=== PATIENT | female | born 1960 | race Caucasian/White ===

== ENCOUNTER 2024-01-25 06:24 | Emergency (ER) | payer OTHER, SELFPAY ==
[2024-01-25] VITALS (9 sets, daily range): BP systolic 74–99; BP diastolic 43–65; BMI 32.9
--- NOTE | 2024-01-25 07:20 | ED.GENMED ---
History of Present Illness
General
Chief Complaint: Abdominal Symptoms
Source: patient, records and family
Exam Limitations: none
Time Seen by Provider: 01/25/24 06:46
Nursing documentation reviewed up to this point in time: agreed with
Travel History
Have you had any contact with someone who has COVID-19?: No
Do you have any symptoms of coronavirus? Fever > 100 degrees, chills, cough, shortness of breath, sore throat, loss of taste or smell, muscle aches, or headache?: No
History of Present Illness
History of Present Illness:
Patient is a 63-year-old female who presents to the emergency department with diarrhea every time she eats which is liquidy but no blood or mucus for the past 5 days. Patient recently had her Mounjaro increased and shortly after that she began to
have the diarrhea. Patient denies any recent antibiotics, raw seafood or travel history. Patient starting to belch and feel nauseous but no vomiting. Patient has a generalized discomfort of her abdomen. Patient denies fever or chills. Patient
does feel dry. Patient denies any nasal congestion, sore throat or cough. Patient denies chest pain or shortness of breath. Patient denies any previous history of similar episodes. Patient was taking Imodium on the recommendation of the urgent
care which seem to help and then yesterday she began to feel worse
Past History
Past History
ED Past Medical History: Asthma, CAD, HTN and NIDDM
ED Past Surgical History: Cardiac (two stents) and Orthopedic
Social History
Tobacco: Former smoker
Alcohol: Occasional
Drug: None
Personal: Single
Living: with family
Employment: Retired
Review of Systems
Review of Systems
All Other Systems: ROS reviewed and negative except as documented in HPI and ROS
Constitutional: Reports fatigue; Denies fever or chills
EENT: Reports no symptoms
Respiratory: Reports no symptoms
Cardiac: Reports no symptoms
ABD/GI: Reports abdominal pain, nausea, diarrhea and anorexia; Denies vomiting, bloody stools or black stools
: Reports no symptoms
Musculoskeletal: Reports no symptoms
Skin: Reports no symptoms
Neurological: Reports no symptoms
Hematologic/Lymphatic: Reports no symptoms
Phy Exam
Physical Exam
Physical Exam:
Physical Exam
General: mild distress, alert and appropriate, obese, dry mucous membranes
HENT: Normocephalic, supple with no lymphadenopathy, no thyromegaly
Eyes: Clear sclera, conjuctiva without injection
Heart: Regular rhythm and rate. No S3, S4. No murmur. No NVD
Lungs: No respiratory distress, no stridor, lung sounds clear and equal bilaterally
Abdomen: Soft, mild diffuse tenderness without guarding or rebound, no organomegaly, no CVA tenderness, BS hyperactive
Neuro: Alert and oriented x 3, CN II - XII intact, no motor focality
Skin: no rash
Psychiatric: well kept. interactive and cooperative
Extremities: No edema, cyanosis, tenderness
Course
Orders/Labs/Results
Orders:
Orders
01/25/24 07:17
CT Abd/Pel (IV only)-[facility] only Urgent
Comment:
Reason For Exam: diffuse abd pain
Urinalysis Reflex To Culture Urgent
01/25/24 07:18
0.9% Sodium Chloride 1000 ml [Nss] 1,000 ml IV BOLUS
HYDROmorphone [Dilaudid] 0.5 mg IV NOW STA
Ondansetron Injectable [Zofran] 4 mg IV NOW STA
01/25/24 07:22
Complete Blood Count/With Diff Urgent
Comprehensive Metabolic Panel Urgent
Lipase Urgent
01/25/24 09:11
0.9% Sodium Chloride 1000 ml [Nss] 1,000 ml IV BOLUS
01/25/24 09:13
Diphenoxylate / Atropine [Lomotil] 1 tablet PO NOW STA
Abnormal Lab Results
01/25/24
07:22
MCH 31.6 H pg
(27.0-31.0)
MPV 11.8 H fL
(7.4-10.4)
Absolute Lymphs (auto) 0.8 L 10^3/uL
(1.2-3.4)
Absolute Monos (auto) 0.9 H 10^3/uL
(0.1-0.6)
Lymphocytes % 12.2 L %
(20.5-51.1)
Monocytes % 13.4 H %
(1.7-9.3)
Sodium 133 L mmol/L
(135-145)
BUN 33 H mg/dl
(7-17)
Glucose 108 H mg/dl
(70-99)
Total Protein 6.2 L g/dl
(6.3-8.2)
Lipase 15 L U/L
(23-300)
01/25/24 07:22
01/25/24 07:22
Vital Signs
Initial and Last Documented VS:
Initial Vital Signs
Temp Pulse Resp BP Pulse Ox
98.9 F 84 22 90/64 95
01/25/24 06:26 01/25/24 06:26 01/25/24 06:26 01/25/24 06:26 01/25/24 06:26
Last Documented Vital Signs
Temp Pulse Resp BP Pulse Ox
98.9 F 69 18 99/43 98
01/25/24 06:26 01/25/24 09:36 01/25/24 09:36 01/25/24 10:00 01/25/24 10:00
*Pulse Oximetry
Patient hypoxic: no
*EKG
Interpreted by ED Provider?: NA
*Transfer Iron Operator Interpretation
Rate: Transfer Iron Operator- N/A
*Critical Care Note
Total Time (30-74mins, 75-104mins- exclusive of procedures): Not Applicable
Update Note
Update Note:
Spoke with the patient's endocrinology practice. Will hold Little and will reinstruct. Patient's physician will be in contact with her. In addition the patient's appointment is in few weeks. Patient will be told to continue fluid and old next
round of medications for her blood pressure.
ED Attending Note
-
Portions of this chart may have been created with voice recognition software.� Occasional wrong word or��sound alike� substitutions may have occurred due to the inherent limitations of voice recognition software.
Discharge Plan
Departure
Patient Disposition: Home (Routine Discharge)
Date of Disposition: 01/25/24
Time of Disposition: 10:59
Patient with high blood pressure during this ER visit?: No
Condition: Fair
Covid-19: Not Applicable
Discharge Problem:
Acute diarrhea, Dehydration
Instructions: Diarrhea in adolescents and adults, Dehydration, Adult (DC), [place] Diet
Prescriptions:
No Action
atorvastatin [Lipitor] 40 mg Tablet
40 mg PO DAILY
metformin 500 mg Tablet
1,000 mg PO BID
citalopram [Celexa] 40 mg Tablet
40 mg PO DAILY
loperamide 2 mg Tablet
2 mg PO Q4HPRN PRN (Reason: DIARRHEA)
cyanocobalamin (vitamin B-12) 1,000 mcg Tablet
1,000 mcg PO DAILY
diltiazem HCl 240 mg Capsule,Extended Release 24 Hr
240 mg PO DAILY
chlorthalidone 25 mg Tablet
25 mg PO DAILY
levothyroxine [Synthroid] 150 mcg Tablet
150 mcg PO DAILY
lisinopril 40 mg Tablet
40 mg PO DAILY
naproxen 500 mg Tablet
500 mg PO DAILYPRN PRN (Reason: BACK PAINS)
insulin aspart U-100 [Novolog FlexPen U-100 Insulin] 100 unit/mL (3 mL) Insulin Pen
5 sliding scale dose SC AC
cholecalciferol (vitamin D3) [Vitamin D3] 25 mcg (1,000 unit) Tablet
25 mcg PO DAILY
Brilinta 90 mg Tablet
90 mg PO BID
insulin glargine U-300 conc [Toujeo Max U-300 SoloStar] 300 unit/mL (3 mL) Insulin Pen
50 - 65 unit SC QPM
Mounjaro 12.5 mg/0.5 mL Pen Injector
12.5 mg SC WE
Hair, Skin and Nails (biotin) 10,000 mcg Tablet,Chewable
10,000 mcg PO DAILY
Referrals:
PRIVATE,PHYSICIAN [Family Provider] -
Activity Restrictions/Additional Instructions:
Hold the Mounjaro until you speak to your physician next week. In addition do not take your blood pressure medication for 24 hours. Make sure to drink plenty of fluids. You can use Kaopectate and Imodium with the diarrhea. Any problems please
return
Interventions
Interventions:
*Risk Screen - Suicide Last Done: 01/25/24 06:26
*General Assessment Last Done: 01/25/24 06:26
*Neglect/Abuse Screening Last Done: 01/25/24 06:26
ED- Fall Risk Assessment Last Done: 01/25/24 06:26
*ED COVID-19 Vaccine History Last Done: 01/25/24 06:26
XP-Tdseqs-Andvghcyia Assessment Last Done: 01/25/24 07:30
Discharge Date and Time
Print Language: [id number]
[2024-01-25] MEDS: NSS 1000 IV ×2 (07:21→09:12)
[2024-01-25 07:28] LABS: % Basophils 0.3 % (0-2); % Eosinophils 3.8 % (0-6); % Immature Granulocytes 0.3 % (0-0.5); % Lymphocytes 12.2 % (20.5-51.1); % Monocytes 13.4 % (1.7-9.3); Absolute Eosinophils 0.3 10^3/uL (0-0.7); Absolute Lymphocytes 0.8 10^3/uL (1.2-3.4); Absolute Monocytes 0.9 10^3/uL (0.1-0.6); Absolute Neutrophils 4.7 10^3/uL (1.4-6.5); Hematocrit 39.5 % (37.0-47.0); Hemoglobin 13.5 g/dL (12.0-16.0); Mean Corp Hgb Conc. 34.2 g/dL (33.0-37.0); Mean Corpuscular Hgb 31.6 pg (27.0-31.0); Mean Corpuscular Volume 92.5 fL (81.0-99.0); Mean Platelet Volume 11.8 fL (7.4-10.4); Nucleated Red Blood Cells % 0 %; Platelet Count 173 10^3/uL (130-400); Red Blood Cell Count 4.27 10^6/uL (4.20-5.40); Red Cell Dist. Width 13.5 % (11.5-14.5); White Blood Cell Count 6.7 10^3/uL (4.8-10.8)
[2024-01-25] MEDS: DILAUDID 0.5 MG IV (07:30)
[2024-01-25] MEDS: ZOFRAN 4 MG IV (07:30)
[2024-01-25 07:44] LABS: ALT (SGPT) 20 U/L (0-35); AST (SGOT) 20 U/L (14-36); Albumin 3.7 g/dl (3.5-5.0); Alkaline Phosphatase 84 U/L (38-126); Blood Urea Nitrogen 33 mg/dl (7-17); Calcium 9.1 mg/dl (8.4-10.2); Carbon Dioxide 24 mmol/L (22-30); Chloride 104 mmol/L (98-107); Estimated Creatinine Clearance 111 ml/min; Glucose 108 mg/dl (70-99); Lipase 15 U/L (23-300); Potassium 4.5 mmol/L (3.5-5.1); Sodium 133 mmol/L (135-145); Total Bilirubin 0.3 mg/dl (0.2-1.3); Total Protein 6.2 g/dl (6.3-8.2); eGFR > 60.00
[2024-01-25] MEDS: LOMOTIL 1 TABLET PO (09:30)
== END 2024-01-25 11:45 | disposition home or self-care (01) ==
LOC: EMR 06:24
PROVIDERS: EMERGENCY PHYSICIAN Emergency Medicine
DX: R19.7 Diarrhea, unspecified (principal); R10.9 Unspecified abdominal pain; R11.0 Nausea; E86.0 Dehydration; I25.10 Atherosclerotic heart disease of native coronary artery without angina pectoris; I10 Essential (primary) hypertension; E11.9 Type 2 diabetes mellitus without complications; J45.909 Unspecified asthma, uncomplicated; Z95.5 Presence of coronary angioplasty implant and graft; Z87.891 Personal history of nicotine dependence
CPT/HCPCS: 99285; 96375; 96361 ×3; 96374; 74177; 80053; 83690; 85025; Q9967